=== PATIENT | female | born 1980 | race Caucasian/White ===

== ENCOUNTER 2023-12-22 06:10 | Day surgery (SDC) | payer OTHER, SELFPAY ==
[2023-12-22 08:20] VITALS: BMI 22.0
[2023-12-22 08:21] VITALS: BP 134/94
[2023-12-22 11:06] VITALS: BP 132/89
[2023-12-22 11:21] VITALS: BP 125/82
[2023-12-22 11:31] VITALS: BP 127/86
== END 2023-12-22 11:43 | disposition home or self-care (01) ==
LOC: SDS 06:10
PROVIDERS: ATTENDING PHYSICIAN Internal Medicine Gastroenterology
DX: D12.3 Benign neoplasm of transverse colon (principal); K57.30 Diverticulosis of large intestine without perforation or abscess without bleeding; K64.0 First degree hemorrhoids; Z98.890 Other specified postprocedural states
CPT/HCPCS: 45390; 88305